=== PATIENT | female | born 1960 | race Caucasian/White ===

== ENCOUNTER 2018-09-03 11:11 | Day surgery (SDC) | payer OTHER ==
[~2018-09-03] VITALS: Ht 165.1 cm; Wt 90.4 kg
[~2018-09-03 11:11] MED LIST: AMLO5 PO; Ranitidine HCl150 M1 PO; TYLENOL PM PO; VITAMIN D; Zegerid 40 MG1 EACH PO; [UNRECOGNIZED DRUG - OTHER] PO
== END 2018-09-03 13:37 | disposition home or self-care (01) ==
LOC: ORSCSDS 11:11
PROVIDERS: Internal Medicine Gastroenterology
PROC: 0DBH8ZX Excision of Cecum, Via Natural or Artificial Opening Endoscopic, Diagnostic (ICD-10-PCS; principal; 2018-09-03 12:30)
PROC: 0DB68ZX Excision of Stomach, Via Natural or Artificial Opening Endoscopic, Diagnostic (ICD-10-PCS; principal; 2018-09-03 12:30)
PROC: 0DB58ZX Excision of Esophagus, Via Natural or Artificial Opening Endoscopic, Diagnostic (ICD-10-PCS; principal; 2018-09-03 12:30)
DX: K21.9 Gastro-esophageal reflux disease without esophagitis (principal); K29.70 Gastritis, unspecified, without bleeding; Z12.11 Encounter for screening for malignant neoplasm of colon; D12.0 Benign neoplasm of cecum; K44.9 Diaphragmatic hernia without obstruction or gangrene; K64.8 Other hemorrhoids; K64.4 Residual hemorrhoidal skin tags; I10 Essential (primary) hypertension; Z79.899 Other long term (current) drug therapy
CPT/HCPCS: 88305; 88342; J7120

== ENCOUNTER → 2023-09-19 | Outpatient (CLI) | payer MEDICARE, OTHER ==
[2023-09-27 13:12] LABS: HPV GENOTYPE 16 Not Detected; HPV GENOTYPE 18 Not Detected; HPV HIGH RISK Not Detected; HPV SOURCE Cervical
== END ==
LOC: LAB 15:21 → LAB SHORT 15:21
PROVIDERS: Physician Assistant
DX: Z01.419 Encounter for gynecological examination (general) (routine) without abnormal findings (principal)
CPT/HCPCS: 87624; G0123

== ENCOUNTER 2024-09-18 12:30 | Day surgery (SDC) | payer MEDICARE, OTHER ==
[~2024-09-18] VITALS: Ht 167.6 cm; Wt 79.8 kg
[~2024-09-18 12:30] MED LIST changes: +Lidocaine HCl/Pf 1% 5 ML VIAL ONE
[2024-09-18] MEDS ORDERED: ESOM20 PO (12:53)
[2024-09-18] MEDS ORDERED: ATOR20 PO (12:53)
[2024-09-18] MEDS ORDERED: FAMO40 (12:54)
[2024-09-18] MEDS ORDERED: FERSU300 PO (12:55)
[2024-09-18] MEDS ORDERED: Lactated Ringer's 1,000 ML IV ONE ×2 (13:11→13:55)
[2024-09-18] MEDS ORDERED: propofoL 50 ML IV ONE (13:55)
[2024-09-18 15:12] VITALS: BP 119/77
== END 2024-09-18 14:55 | disposition home or self-care (01) ==
LOC: ORSCSDS 12:30
PROVIDERS: Internal Medicine Gastroenterology
PROC: 0DJ08ZZ Inspection of Upper Intestinal Tract, Via Natural or Artificial Opening Endoscopic (ICD-10-PCS; principal; 2024-09-18 15:00)
DX: K22.70 Barrett's esophagus without dysplasia (principal); K21.9 Gastro-esophageal reflux disease without esophagitis; K31.7 Polyp of stomach and duodenum; K44.9 Diaphragmatic hernia without obstruction or gangrene; Z87.891 Personal history of nicotine dependence; Z79.899 Other long term (current) drug therapy
CPT/HCPCS: 88305; 88342; J2003; J2704; J7120